=== PATIENT | male | born 1955 | race Caucasian/White ===

== ENCOUNTER 2024-02-08 12:33 | Inpatient (IN) | payer MEDICARE ==
[~2024-02-08] VITALS: Ht 182.9 cm; Wt 84.2 kg
[2024-02-08 12:50] VITALS: TEMP 98.4
[2024-02-08] MEDS: HYDRALAZINE HCL 20 MG/ML VIAL IV ONE (13:34)
[2024-02-08 13:40] VITALS: BP 126/92; PULSE 102; RESP 22; TEMP 98.4; O2SAT 96
[2024-02-08] MEDS ORDERED: SODIUM CHLORIDE FLUSH 10 ML SYR INJ PRN (14:15)
[2024-02-08] MEDS: FUROSEMIDE INJ 10 MG/ML 4 ML VIAL IV ONE (14:21)
[2024-02-08 14:26] VITALS: PULSE 101; RESP 18; O2SAT 98
[2024-02-08] MEDS ORDERED: IOPAMIDOL 370 MG/ML 100 ML INFUS..BTL INJ ONE (14:31)
[2024-02-08 16:45] VITALS: PULSE 110; RESP 20
[2024-02-08] MEDS ORDERED: SIMETHICONE 80 MG CHEW PO PRN (17:45)
[2024-02-08] MEDS ORDERED: HYDRALAZINE HCL 20 MG/ML VIAL IV PRN (17:45)
[2024-02-08] MEDS ORDERED: ACETAMINOPHEN 325 MG TAB PO PRN (17:45)
[2024-02-08] MEDS ORDERED: DEXTROSE 50% SYRINGE 50 ML IV PRN (17:45)
[2024-02-08] MEDS ORDERED: ONDANSETRON HCL INJ 2MG/ML 2ML 2 MG/ML VIAL IV PRN (17:45)
[2024-02-08] MEDS ORDERED: DIPHENHYDRAMINE HCL 25 MG CAP PO PRN (17:45)
[2024-02-08] MEDS ORDERED: BENZONATATE 100 MG CAP PO PRN (17:45)
[2024-02-08] MEDS ORDERED: DOCUSATE SODIUM 100 MG CAP PO PRN (17:45)
[2024-02-08] MEDS ORDERED: LIDOCAINE 4% PATCH TP PRN (17:45)
[2024-02-08 17:50] VITALS: BP 137/99; PULSE 112; RESP 20; TEMP 98.2; O2SAT 99
[2024-02-08 20:00] VITALS: BP 123/80; PULSE 99; RESP 17; TEMP 98.2; O2SAT 97
[2024-02-08] MEDS: METOPROLOL TARTRATE 25 MG TAB PO SCH (21:30)
[2024-02-08] MEDS: NICOTINE 21 MG/EA PATCH TOP SCH (21:34)
[2024-02-08] MEDS: FUROSEMIDE INJ 10 MG/ML 4 ML VIAL IV SCH (23:07)
[2024-02-09] VITALS (9 sets, daily range): BP systolic 103–125; BP diastolic 74–103; PULSE 76–89; RESP 17–18; TEMP 97.4–98.3; O2SAT 96–100
[2024-02-09 06:23] LABS: BASOPHILS % 0.3 % (0.0-1.0); EOSINOPHILS # (AUTO) 0.1 (0.0-0.4); EOSINOPHILS % 0.6 % (0.0-6.0); HEMATOCRIT 36.3 % (38.2-49.6); HEMOGLOBIN 11.3 g/dL (14.0-18.0); LYMPHOCYTES # (AUTO) 3.3 (1.0-3.2); LYMPHOCYTES % 21.4 % (18.0-39.1); MEAN CORPUSCULAR HEMOGLOBIN 26.5 pg (28-32); MEAN CORPUSCULAR HGB CONC 31.1 g/dL (31-35); MEAN CORPUSCULAR VOLUME 85.2 fL (81-99); MONOCYTES % 6.3 % (4.4-11.3); NEUTROPHILS # (AUTO) 10.8 (2.1-6.9); NEUTROPHILS % 70.9 % (38.7-80.0); PLATELET COUNT 461 x10e3/uL (140-360); RED BLOOD COUNT 4.26 x10e6/uL (4.3-5.7); RED CELL DISTRIBUTION WIDTH 17.1 % (11.7-14.4)
[2024-02-09 06:59] LABS: ANION GAP 14.7 mmol/L (8-16); CALCIUM 9.4 mg/dL (8.4-10.2); CREATININE, SERUM 1.21 mg/dL (0.72-1.25); MAGNESIUM 1.9 MG/DL (1.3-2.1); POTASSIUM 3.7 mmol/L (3.5-5.1)
[2024-02-09 07:32] LABS: CHOL/HDL RATIO 4.3 (3.9-4.7); PHOSPHORUS 3.8 MG/DL (2.3-4.7)
[2024-02-09 07:36] LABS: TROPONIN I 0.126 ng/mL (0-0.300)
[2024-02-09] MEDS: ALBUTEROL/IPRATROPIUM 3 ML NEB NEB PRN (08:15)
[2024-02-09] MEDS: PANTOPRAZOLE SOD 40 MG TABEC PO SCH (09:23)
[2024-02-09 13:27] LABS: TROPONIN I 0.134 ng/mL (0-0.300)
[2024-02-09] MEDS: ALBUTEROL/IPRATROPIUM 3 ML NEB NEB ONE (16:50)
[2024-02-09] MEDS: ENOXAPARIN SOD INJ 40 MG/0.4 ML SYR SC SCH (17:00)
[2024-02-09] MEDS: ALBUTEROL/IPRATROPIUM 3 ML NEB NEB SCH (17:10)
[2024-02-09] MEDS: BUDESONIDE 0.5MG/2 ML NEB INH SCH (17:16)
[2024-02-09] MEDS: METHYLPREDNISOLONE SOD SUCC 40 MG/ML VIAL 1ML IV SCH (17:33)
[2024-02-09] MEDS: MELATONIN 5 MG TABLET PO PRN (22:10)
[2024-02-09] MEDS: ATORVASTATIN 40 MG TAB PO SCH (22:10)
[2024-02-10] VITALS (11 sets, daily range): BP systolic 109–126; BP diastolic 73–86; PULSE 65–89; RESP 18–20; TEMP 97.3–97.9; O2SAT 94–100
[2024-02-10 05:55] LABS: BASOPHILS % 0.1 % (0.0-1.0); HEMATOCRIT 36.4 % (38.2-49.6); HEMOGLOBIN 11.7 g/dL (14.0-18.0); LYMPHOCYTES # (AUTO) 1.4 (1.0-3.2); LYMPHOCYTES % 7.9 % (18.0-39.1); MEAN CORPUSCULAR HEMOGLOBIN 26.7 pg (28-32); MEAN CORPUSCULAR HGB CONC 32.1 g/dL (31-35); MEAN CORPUSCULAR VOLUME 83.1 fL (81-99); MONOCYTES # (AUTO) 0.5 (0.2-0.8); MONOCYTES % 3.1 % (4.4-11.3); NEUTROPHILS # (AUTO) 15.2 (2.1-6.9); NEUTROPHILS % 88.6 % (38.7-80.0); PLATELET COUNT 449 x10e3/uL (140-360); RED BLOOD COUNT 4.38 x10e6/uL (4.3-5.7); RED CELL DISTRIBUTION WIDTH 16.8 % (11.7-14.4); WHITE BLOOD COUNT 17.21 x10e3/uL (4.8-10.8)
[2024-02-10 06:12] LABS: ANION GAP 16.3 mmol/L (8-16); CALCIUM 8.7 mg/dL (8.4-10.2); CREATININE, SERUM 1.22 mg/dL (0.72-1.25)
[2024-02-10 06:16] LABS: POTASSIUM 3.3 mmol/L (3.5-5.1)
[2024-02-10 07:12] LABS: TROPONIN I 0.094 ng/mL (0-0.300)
[2024-02-10] MEDS: POTASSIUM CHLORIDE 20 MEQ TAB CR PO PRN (14:55)
[2024-02-11] VITALS (12 sets, daily range): BP systolic 101–110; BP diastolic 65–78; PULSE 65–84; RESP 17–21; TEMP 98–98.4; O2SAT 95–100
[2024-02-11 06:55] LABS: INR 1.09; PROTHROMBIN TIME 14.7 seconds (11.9-14.5)
[2024-02-11 06:56] LABS: PARTIAL THROMBOPLASTIN TIME 33.3 seconds (23.8-35.5)
[2024-02-11 15:12] LABS: BODY FLUID APPEARANCE CLOUDY; BODY FLUID COLOR YELLOW; BODY FLUID TYPE PLEURAL; RBC,BODY FLUID 1000 cells/uL; WBC,BODY FLUID 883 cells/uL
[2024-02-11 18:42] LABS: LYMPHOCYTES,BODY FLUID 24 %; MONO/MACROPHG,BODY FLUID 69 %; NEUTROPHILS,BODY FLUID 7 %; TOTAL CELLS COUNTED (DIFF) 100
[2024-02-12] VITALS (20 sets, daily range): BP systolic 109–170; BP diastolic 65–91; PULSE 67–87; RESP 13–20; TEMP 96.6–98.2; O2SAT 93–100
[2024-02-12] MEDS ORDERED: VERAPAMIL HCL 2.5 MG/ML 2 ML VIAL ONE (06:51)
[2024-02-12] MEDS ORDERED: HEPARIN SOD (PORCINE) 1000 UNIT/ML 30ML ONE (06:51)
[2024-02-12] MEDS ORDERED: SODIUM CHLORIDE 0.9% 1000ML 1,000 ML ONE (06:51)
[2024-02-12] MEDS ORDERED: NITROGLYCERIN/D5W 200 MCG/ML 250 ML ONE (06:51)
[2024-02-12] MEDS ORDERED: IOPAMIDOL 370 MG/ML 100 ML INFUS..BTL INJ ONE (06:51)
[2024-02-12] MEDS ORDERED: HEPARIN SOD/SOD CHLORIDE 2,000 ML ONE (06:51)
[2024-02-12] MEDS ORDERED: LIDOCAINE HCL 2% LOCAL 20 ML VIAL ONE (06:51)
[2024-02-12] MEDS ORDERED: FENTANYL CITRATE/PF 100MCG/2 ML INJ ONE (07:25)
[2024-02-12] MEDS ORDERED: MIDAZOLAM HCL 2 MG/2 ML VIAL ONE (07:25)
[2024-02-12] MEDS ORDERED: HEPARIN SOD/SOD CHLORIDE 1,000 ML ONE (07:34)
[2024-02-12] MEDS: FUROSEMIDE 40 MG TAB PO SCH (09:00)
[2024-02-12] MEDS: METOPROLOL SUCCINATE 25 MG TAB XL PO SCH (09:00)
[2024-02-12] MEDS: LISINOPRIL 2.5 MG TAB PO SCH (09:00)
[2024-02-12] MEDS: METHYLPREDNISOLONE SOD SUCC 40 MG/ML VIAL 1ML IV SCH (16:59)
[2024-02-13] VITALS (7 sets, daily range): BP systolic 123–126; BP diastolic 73–81; PULSE 71–86; RESP 16–20; TEMP 97.7–97.8; O2SAT 93–100
[2024-02-13 07:02] LABS: BASOPHILS % 0.1 % (0.0-1.0); HEMATOCRIT 33.7 % (38.2-49.6); HEMOGLOBIN 10.7 g/dL (14.0-18.0); LYMPHOCYTES # (AUTO) 2.1 (1.0-3.2); LYMPHOCYTES % 11.6 % (18.0-39.1); MEAN CORPUSCULAR HEMOGLOBIN 26.8 pg (28-32); MEAN CORPUSCULAR HGB CONC 31.8 g/dL (31-35); MEAN CORPUSCULAR VOLUME 84.3 fL (81-99); MONOCYTES # (AUTO) 1.1 (0.2-0.8); MONOCYTES % 6.2 % (4.4-11.3); NEUTROPHILS # (AUTO) 14.5 (2.1-6.9); NEUTROPHILS % 81.5 % (38.7-80.0); PLATELET COUNT 390 x10e3/uL (140-360); RED CELL DISTRIBUTION WIDTH 17.3 % (11.7-14.4); WHITE BLOOD COUNT 17.72 x10e3/uL (4.8-10.8)
[2024-02-13 07:30] LABS: ANION GAP 14.6 mmol/L (8-16); CALCIUM 9.3 mg/dL (8.4-10.2); CREATININE, SERUM 0.96 mg/dL (0.72-1.25); POTASSIUM 3.6 mmol/L (3.5-5.1)
== END 2024-02-13 14:40 | disposition home or self-care (01) | DRG 286 ==
LOC: FSED 12:38 → ERHOLD 14:07 → MED/SURG3 17:40
PROVIDERS: ADMIT Internal Medicine; ATTEND Internal Medicine
PROC: 0W993ZZ Drainage of Right Pleural Cavity, Percutaneous Approach (ICD-10-PCS; 2024-02-11)
PROC: 4A023N7 Measurement of Cardiac Sampling and Pressure, Left Heart, Percutaneous Approach (ICD-10-PCS; principal; 2024-02-12)
PROC: B2111ZZ Fluoroscopy of Multiple Coronary Arteries using Low Osmolar Contrast (ICD-10-PCS; 2024-02-12)
PROC: B2151ZZ Fluoroscopy of Left Heart using Low Osmolar Contrast (ICD-10-PCS; 2024-02-12)
PROC: 4A12X45 Monitoring of Cardiac Electrical Activity, Ambulatory, External Approach (ICD-10-PCS; 2024-02-12)
DX: I11.0 Hypertensive heart disease with heart failure (principal); I50.21 Acute systolic (congestive) heart failure; J18.9 Pneumonia, unspecified organism; J44.1 Chronic obstructive pulmonary disease with (acute) exacerbation; J91.8 Pleural effusion in other conditions classified elsewhere; J44.0 Chronic obstructive pulmonary disease with (acute) lower respiratory infection; I47.29 Other ventricular tachycardia; R06.03 Acute respiratory distress; I42.0 Dilated cardiomyopathy; D72.829 Elevated white blood cell count, unspecified; T38.0X5A Adverse effect of glucocorticoids and synthetic analogues, initial encounter; Y92.230 Patient room in hospital as the place of occurrence of the external cause; I49.3 Ventricular premature depolarization; I25.10 Atherosclerotic heart disease of native coronary artery without angina pectoris; E78.5 Hyperlipidemia, unspecified; F17.200 Nicotine dependence, unspecified, uncomplicated; D64.9 Anemia, unspecified; R31.9 Hematuria, unspecified; Z11.52 Encounter for screening for COVID-19
CPT/HCPCS: 0223U; 32555; 36415; 71045; 71046; 71260; 74470; 76604; 76937; 80048; 80053; 80061; 81003; 82040; 82550; 82553; 83036; 83605; 83735; 83880; 84100; 84157; 84443; 84484; 85025; 85379; 85610; 85730; 87040; 87070; 87205; 88112; 88305; 89051; 93005; 93306; 93458; 94640; 94760; 94799; 96365; 96374; 99152; 99252; 99284; C1729; C1887; J0696; J1644; J1650; J1940; J2003; J2250; J2919; J7030; J7050; Q9967